=== PATIENT | female | born 1995 | race Caucasian/White ===

== ENCOUNTER 2018-12-21 20:21 | Emergency (ER) | payer OTHER ==
[~2018-12-21] VITALS: Wt 72.0 kg
[~2018-12-21 20:21] MED LIST: [UNRECOGNIZED DRUG - CODE] PO
[2018-12-21 20:33] VITALS: BP 112/56; PULSE 63; RESP 18
[2018-12-21] MEDS ORDERED: IBUP-1542 PO (22:25)
--- NOTE | 2018-12-21 22:40 | ERD ---
ER Documentation Chief Complaint Chief Complaint L LEG TINGLING FOR THE PAST 3 DAYS. NO DISTRESS NO NEURO DEFICIT, NO TRAUMA HPI 23-year-old female with no past medical surgical history who presents with 3-day complaint of right leg tingling. Describes feeling of right leg being hot. With tingling starting at the right buttock and radiating down to the right foot. She denies any recent trauma, weakness or numbness of right lower extremity. Denies history of diabetes or peripheral vascular disease. She is ambulating without issue and is otherwise without further complaint. ROS All systems reviewed and are negative except as per history of present illness. Medications Home Meds Active Scripts Ibuprofen* (Motrin*) 600 Mg Tab, 600 MG PO Q6H PRN for PAIN AND OR ELEVATED TEMP, #30 TAB Prov:KEATON LOPEZ PA-C 12/21/18 Reported Medications Vit/Fe Fumarate/Fa/Se ( Mtr Tablet) 1 Tab Tablet, 1 TAB PO DAILY 12/05/12 Allergies Allergies: Coded Allergies: No Known Allergy (Unverified , 07/27/16) PMhx/Soc Medical and Surgical Hx: pt denies Medical Hx History of Surgery: Yes ( X'S 2) Anesthesia Reaction: No Hx Neurological Disorder: No Hx Respiratory Disorders: No Hx Cardiac Disorders: No Hx Psychiatric Problems: No Hx Miscellaneous Medical Probl: No Hx Alcohol Use: No Hx Substance Use: No Hx Tobacco Use: No Smoking Status: Never smoker FmHx Family History: No diabetes, No coronary disease, No other Physical Exam Vitals Vital Signs Date Temp Pulse Resp B/P (MAP) Pulse Ox O2 O2 Flow FiO2 Time Delivery Rate 12/21/18 98.8 63 18 112/56 98 20:33 (74) Physical Exam I have reviewed the triage vital signs. Const: Well nourished, well developed, appears stated age Eyes: PERRL, no conjunctival injection HENT: NCAT, Neck supple without meningismus CV: RRR, Warm, well-perfused extremities RESP: CTAB, Unlabored respiratory effort GI: soft, non-tender, non-distended, no masses MSK: No gross deformities appreciated, negative straight leg test b/l, SILT throughout B/L LE, 5/5 strength throughout Skin: Warm, dry. No rashes Neuro: grossly non focal Psych: Appropriate mood and affect. Procedures/MDM 23-year-old female presents with right leg paresthesias and tingling. Symptoms likely from transient sciatic nerve inflammation. Patient does not have risk factors such as advanced age, diabetes or other medical problems put her at risk for deterioration of her symptoms. She does not warrant any further emergent workup. She should improve with appropriate pain medication and anti- inflammatory medication. Her neurovascular exam is unremarkable. She has full sensation and 5 out of 5 strength throughout bilateral lower extremities. No history of trauma and no concerning risk factors. Plan: Ibuprofen PMD follow up DISPOSITION PLAN: We discussed follow up with the patient's primary care doctor within 24 to 48 hours. Patient counseled regarding my diagnostic impression and care plan. Prior to discharge all questions answered. Pt agrees with treatment plan and understands strict return precautions. Precautionary instructions provided including instructions to return to the ER if not improving or for any worsening or changing symptoms or concerns. Departure Diagnosis: Primary Impression: Right leg paresthesias Condition: Stable Referrals: [facility] YOU HAVE RECEIVED A MEDICAL SCREENING EXAM AND THE RESULTS INDICATE THAT YOU DO NOT HAVE A CONDITION THAT REQUIRES URGENT TREATMENT IN THE EMERGENCY DEPARTMENT. FURTHER EVALUATION AND TREATMENT OF YOUR CONDITION CAN WAIT UNTIL YOU ARE SEEN IN YOUR DOCTORS OFFICE WITHIN THE NEXT 1-2 DAYS. IT IS YOUR RESPONSIBILITY TO MAKE AN APPOINTMENT FOR FOLOW-UP CARE. IF YOU HAVE A PRIMARY DOCTOR --you should call your primary doctor and schedule an appointment IF YOU DO NOT HAVE A PRIMARY DOCTOR YOU CAN CALL OUR PHYSICIAN REFERRAL HOTLINE AT IF YOU CAN NOT AFFORD TO SEE A PHYSICIAN YOU CAN CHOSE FROM THE FOLLOWING [facility] [address] [facility] [address] [facility]. [facility] [address] [facility]. [facility] [address] [facility] [address] [facility]. [facility]. [address] Additional Instructions: Call your primary care doctor TOMORROW for an appointment during the next 2-3 days.See the doctor sooner or return here if your condition worsens before your appointment time. KEATON LOPEZ PA-C Dec 21, 2018 22:40
== END 2018-12-21 22:43 | disposition home or self-care (01) ==
LOC: FTE 20:21
DX: R20.2 Paresthesia of skin (principal)
CPT/HCPCS: 99282

== ENCOUNTER 2019-04-08 04:43 | Emergency (ER) | payer OTHER ==
[~2019-04-08] VITALS: Ht 170.2 cm; Wt 69.9 kg
[~2019-04-08 04:43] MED LIST changes: +IBUP-1542 PO
[2019-04-08 04:45] VITALS: BP 121/55; PULSE 70; RESP 18; Ht 170.2 cm; Wt 69.9 kg
--- NOTE | 2019-04-08 05:05 | ERD ---
ER Documentation Chief Complaint Chief Complaint ABDOMINAL/CHEST/BACK PAIN SINCE YESTERDAY. 10 WEEKS PREG. NO VB HPI 23-year-old female who is approximately 10 weeks who presents to the emergency room complaining of some lower back discomfort and mild shortness of breath. Patient states that for the last several days she has felt some wheezing and tightness in her chest. She denies any pain in her chest, no pleuritic pain. She also notes associated lumbar back discomfort that is dull and achy. She denies any fevers or chills or cough. No exertional symptoms or PND orthopnea. The patient denies any unilateral leg swelling, no history of DVT. She denies any diaphoresis. The pain in her lower back is cramping, dull, worse with movement. She denies any vaginal bleeding or spotting. ROS All systems reviewed and are negative except as per history of present illness. Medications Home Meds Active Scripts Ibuprofen* (Motrin*) 600 Mg Tab, 600 MG PO Q6H PRN for PAIN AND OR ELEVATED TEMP, #30 TAB Prov:KEATON LOPEZ PA-C 12/21/18 Reported Medications Vit/Fe Fumarate/Fa/Se ( Mtr Tablet) 1 Tab Tablet, 1 TAB PO DAILY 12/05/12 Allergies Allergies: Coded Allergies: No Known Allergy (Unverified , 07/27/16) PMhx/Soc History of Surgery: Yes ( X'S 2) Anesthesia Reaction: No Hx Neurological Disorder: No Hx Respiratory Disorders: No Hx Cardiac Disorders: No Hx Psychiatric Problems: No Hx Miscellaneous Medical Probl: No Hx Alcohol Use: No Hx Substance Use: No Hx Tobacco Use: No FmHx Family History: No diabetes Physical Exam Vitals Vital Signs Date Temp Pulse Resp B/P (MAP) Pulse Ox O2 O2 Flow FiO2 Time Delivery Rate 04/08/19 97.6 70 18 121/55 98 04:45 (77) Physical Exam General: Well developed, well nourished, no acute distress Head: Normocephalic, atraumatic. Eyes: Pupils equally reactive, EOM intact ENT: Moist mucous membranes Neck: Supple, no lymphadenopathy Respiratory: Lungs clear bilaterally, no distress Cardiovascular: RRR, no murmurs, rubs, or gallops Abdominal: Soft, gravid, soft and nontender, non-distended, no peritoneal signs : Deferred MSK: No edema, no unilateral swelling, 5/5 strength, negative Homans sign b ilaterally Neurologic: Alert and oriented, moving all extremities, normal speech, no focal weakness, no cerebellar signs Skin: No rash Psych: Normal mood Result Diagram: 04/08/19 0505 Results 24 hrs Laboratory Tests Test 04/08/19 05:00 04/08/19 05:05 Urine Color YELLOW Urine Clarity TURBID Urine pH 7.0 Urine Specific Chambers 1.018 Urine Ketones NEGATIVE mg/dL Urine Nitrite NEGATIVE mg/dL Urine Bilirubin NEGATIVE mg/dL Urine Urobilinogen NEGATIVE mg/dL Urine Leukocyte Esterase NEGATIVE Pardeep/ul Urine Microscopic RBC 0 /HPF Urine Microscopic WBC 0 /HPF Urine Squamous Epithelial Cells FEW /HPF Urine Amorphous Crystals MODERATE /HPF Urine Hemoglobin NEGATIVE mg/dL Urine Glucose NEGATIVE mg/dL Urine Total Protein NEGATIVE mg/dl White Blood Count 10.3 10^3/ul Red Blood Count 4.28 10^6/ul Hemoglobin 12.8 g/dl Hematocrit 36.7 % Mean Corpuscular Volume 85.7 fl Mean Corpuscular Hemoglobin 29.9 pg Mean Corpuscular Hemoglobin Concent 34.9 g/dl Red Cell Distribution Width 12.3 % Platelet Count 257 10^3/UL Mean Platelet Volume 10.8 fl Immature Granulocytes % 0.400 % Neutrophils % 62.1 % Lymphocytes % 29.2 % Monocytes % 7.0 % Eosinophils % 0.7 % Basophils % 0.6 % Nucleated Red Blood Cells % 0.0 /100WBC Immature Granulocytes # 0.040 10^3/ul Neutrophils # 6.4 10^3/ul Lymphocytes # 3.0 10^3/ul Monocytes # 0.7 10^3/ul Eosinophils # 0.1 10^3/ul Basophils # 0.1 10^3/ul Nucleated Red Blood Cells # 0.0 10^3/ul Procedures/MDM EKG, MONITORS, & DIAGNOSTIC IMAGING: EKG: I reviewed and interpreted a 12-lead EKG. Rhythm: Normal sinus rhythm ST Changes: No contiguous ST segment elevations T waves: No contiguous T wave inversions Impression: No evidence of acute cardiac ischemia LAB INTERPRETATION: I reviewed the laboratory testing and it shows no evidence of acute process MEDICAL DECISION MAKING: This patient is 10 weeks presents with some shortness of breath a symptoms and lower back discomfort. Patient's constellation of symptoms seem to be consistent with normal related changes. Regard the patient shortness of breath she exhibits no signs or symptoms concerning for volume overload, pulmonary edema, pulmonary embolism or ACS. While the patient is the patient is not describing any pleuritic pain, she has no hypoxia or tachycardia no signs of DVT to suggest pulmonary embolus. I do not believe the duplex or VQ scan or CTPA are indicated at this time. D-dimer has limited utility in the setting. The patient's lumbar back discomfort seems to be consistent with normal related changes. She has no CVAT bilaterally. She has a benign abdominal exam. No signs or symptoms concerning for pyelonephritis or ureterolithiasis. Patient is not having any vaginal bleeding or spotting. No evidence of ectopic . A CBC to rule out anemia would be reasonable. I do not believe x-ray imaging would be indicated given low pretest probability and the fact that she is . I would like to avoid unnecessary radiation. ER COURSE: * Laboratory testing is unremarkable. The patient can be safely discharged with close primary care follow-up. CONSULTATION: None DISPOSITION PLAN: The patient does not have an identifiable emergent medical condition that warrants inpatient hospitalization at this time. The patient is deemed safe for discharge with outpatient follow-up. We discussed follow up with the patient's primary care doctor within 24 to 48 hours as needed. We also discussed return to the emergency room for worsening symptoms or worsening condition. Outpatient referral: None required Discharge Medications: None required Departure Diagnosis: Primary Impression: Low back pain Chronicity: acute Back pain laterality: bilateral Sciatica presence: without sciatica Qualified Codes: M54.5 - Low back pain Additional Impression: Shortness of breath Condition: Stable MICHELLE MOYA MD Apr 08, 2019 05:05
== END 2019-04-08 05:57 | disposition home or self-care (01) ==
LOC: E/R 04:43
DX: O99.89 Other specified diseases and conditions complicating pregnancy, childbirth and the puerperium (principal); M54.5 Low back pain; R06.02 Shortness of breath; Z3A.10 10 weeks gestation of pregnancy
CPT/HCPCS: 81001; 85025; 93005